=== PATIENT | male | born 1965 | race Caucasian/White ===

== ENCOUNTER 2021-12-02 07:50 | Inpatient (IN) ==
--- NOTE | 2021-09-07 16:30 | PAT Medication Instructions ---
Medication Instructions Date of Service September 07, 2021 Home Medications acetaminophen 500 mg tablet 1,500 mg PO Q6H PRN albuterol sulfate 2.5 mg INHALATION QID PRN albuterol sulfate 90 mcg/actuation aerosol inhaler 2 puff INHALATION Q6H PRN aspirin 325 mg capsule 325 mg PO QAM cholecalciferol (vitamin D3) 50 mcg (2,000 unit) capsule (Vitamin D3) 50 mcg PO QAM cinnamon bark 500 mg capsule (Cinnamon) 500 mg PO BID diltiazem HCl 120 mg capsule,extended release 12 hr 120 mg PO QAM diphenhydramine HCl 25 mg capsule (Benadryl) 25 mg PO HS PRN dulaglutide 0.75 mg/0.5 mL subcutaneous pen injector (Trulicity) 0.75 mg SUBCUT WK escitalopram oxalate 10 mg tablet 10 mg PO QAM glipizide 10 mg tablet 10 mg PO BID krill 1,000 mg-omega-3 170 mg-dha 50 mg-epa 80 [id number] capsule (krill oil) 1 cap PO QAM lisinopril 10 mg tablet 10 mg PO QAM metformin 1,000 mg tablet 1,000 mg PO BID multivitamin 1 tab PO QAM pravastatin 80 mg tablet 80 mg PO HS repaglinide 2 mg tablet 2 mg PO TID tizanidine 4 mg capsule 4 mg PO HS turmeric root extract 500 mg capsule 500 mg PO QAM vitamin E 100 unit capsule 100 unit PO QAM warfarin 10 mg tablet 10 mg PO HS Continue as directed dulaglutide 0.75 mg/0.5 mL subcutaneous pen injector (Trulicity) 0.75 mg SUBCUT WK (not day of surgery) ASK your prescriber and surgeon aspirin 325 mg capsule 325 mg PO QAM warfarin 10 mg tablet 10 mg PO HS STOP taking 2 weeks before surgery cinnamon bark 500 mg capsule (Cinnamon) 500 mg PO BID krill 1,000 mg-omega-3 170 mg-dha 50 mg-epa 80 [id number]-ywxtz capsule (krill oil) 1 cap PO QAM turmeric root extract 500 mg capsule 500 mg PO QAM vitamin E 100 unit capsule 100 unit PO QAM DO NOT take the morning of surgery cholecalciferol (vitamin D3) 50 mcg (2,000 unit) capsule (Vitamin D3) 50 mcg PO QAM glipizide 10 mg tablet 10 mg PO BID lisinopril 10 mg tablet 10 mg PO QAM metformin 1,000 mg tablet 1,000 mg PO BID multivitamin 1 tab PO QAM repaglinide 2 mg tablet 2 mg PO TID Take morning of surgery With a small sip of water, OTHERWISE NOTHING TO EAT OR DRINK AFTER MIDNIGHT: acetaminophen 500 mg tablet 1,500 mg PO Q6H PRN(okay to take up to 4 hours prior to surgery if needed). albuterol sulfate 2.5 mg INHALATION QID PRN(use if needed; please bring with you to hospital day of surgery if possible). albuterol sulfate 90 mcg/actuation aerosol inhaler 2 puff INHALATION Q6H PRN(use if needed; please bring with you to hospital day of surgery if possible). diltiazem HCl 120 mg capsule,extended release 12 hr 120 mg PO QAM escitalopram oxalate 10 mg tablet 10 mg PO QAM Take evening before surgery acetaminophen 500 mg tablet 1,500 mg PO Q6H PRN(if needed) albuterol sulfate 2.5 mg INHALATION QID PRN(if needed) albuterol sulfate 90 mcg/actuation aerosol inhaler 2 puff INHALATION Q6H PRN(if needed) diphenhydramine HCl 25 mg capsule (Benadryl) 25 mg PO HS PRN(if needed) glipizide 10 mg tablet 10 mg PO BID metformin 1,000 mg tablet 1,000 mg PO BID pravastatin 80 mg tablet 80 mg PO HS repaglinide 2 mg tablet 2 mg PO TID tizanidine 4 mg capsule 4 mg PO HS Other Notes If you have any questions please call us at [phone] or [phone] or [phone] or [phone]
--- NOTE | 2021-09-23 13:48 | Anesthesiology Consultation ---
Date of Service September 23, 2021 Assessment & Plan (1) Encounter for pre-operative examination: - PCP response to optimization note regarding: abnormal pre-op testing, abnormal CXR, chronic occasional dyspnea on exertion reported by patient, mild diffuse wheezing on examination, and elevated A1c. - PCP clearance 09/22/2021 [facility]: "...Dr. Steward...cervical spine surgery...Pt has revised cardiac index score of No Risk Factors-0.4%...for the surgery scheduled. Pt is low for the listed procedure. Based on my history and physical this patient is medically optimized for surgery and I believe he will do well..." - cardiology pre-op evaluation 09/20/2021 [facility]: "...pAtrial flutter newly found 06/15/2021 started cardizem; could not afford the eliquis so anticoagulated with warfarin...Recently in ED 08/24/21 with recurrent PAF. Recently seen in workman's compensation and EKG in their office documented recurrent PAF with a HR of 128 bpm asymptomatic per patient. Referred to ED but was in NSR when evaluated per ED EKG. Needs to have upcoming neck surgery with Dr Steward at [facility] scheduled for 10/04/21. No chest pain symptoms...Does not endorse any recent worsening shortness of breath or chest pain symptoms with exertion...Pt doing well from cardiovascular perspective at this time...Pt is at an acceptable moderate cardiovascular risk for his upcoming orthopedic surgery; ok to hold coumadin prior to the procedure without lovenox bridging and restart afterwards at the discretion of the orthopedic surgeon...Stop ASA..." - check BSG am DOS. - check coags am DOS. - COVID screening: Per assessment on 09/23/2021: Travel screen negative, no known COVID-19 positive contacts or current COVID-19 related symptoms in past 2 weeks. Patient vaccinated. Surgeon arranging preop COVID testing, scheduled 09/30/2021. Awaiting results. Chart Review Chart Review: Acceptable Risk for Surgery (PCP response to optimization note) and Patient seen in Pre Admission Testing Teaching & Discussion Pre-Anesthesia Teaching/Discussion Notes: Instructed NPO after midnight before surgery, except medications with 15 cc of water. Medication instructions provided according to the PAT guidelines. History Surgery Operation Date: 10/04/21 12:25 Proposed Procedures p C4-C7 Anterior Cervical Discectomy and Fusion, Spinal Cord Monitoring - Olivier Steward DO Height/Weight Height: 5 ft 9.5 in Weight: 145.4 kg Allergies Allergy/AdvReac Type Severity Reaction Status Date / Time No Known Allergies Allergy Verified 09/07/21 13:46 Medications Home Medications Medication Instructions Recorded Confirmed Last Taken acetaminophen 500 mg tablet 1,500 mg PO Q6H PRN 09/07/21 09/07/21 Unknown albuterol sulfate 2.5 mg INHALATION QID PRN 09/07/21 09/07/21 Unknown albuterol sulfate 90 mcg/actuation 2 puff INHALATION Q6H PRN 09/07/21 09/07/21 Unknown aerosol inhaler aspirin 325 mg capsule 325 mg PO QAM 09/07/21 09/07/21 Unknown cholecalciferol (vitamin D3) 50 50 mcg PO QAM 09/07/21 09/07/21 Unknown mcg (2,000 unit) capsule (Vitamin D3) cinnamon bark 500 mg capsule 500 mg PO BID 09/07/21 09/07/21 Unknown (Cinnamon) diltiazem HCl 120 mg 120 mg PO QAM 09/07/21 09/07/21 Unknown capsule,extended release 12 hr diphenhydramine HCl 25 mg capsule 25 mg PO HS PRN 09/07/21 09/07/21 Unknown (Benadryl) dulaglutide 0.75 mg/0.5 mL 0.75 mg SUBCUT WK 09/07/21 09/07/21 Unknown subcutaneous pen injector (Trulicity) escitalopram oxalate 10 mg tablet 10 mg PO QAM 09/07/21 09/07/21 Unknown glipizide 10 mg tablet 10 mg PO BID 09/07/21 09/07/21 Unknown krill 1,000 mg-omega-3 170 mg-dha 1 cap PO QAM 09/07/21 09/07/21 Unknown 50 mg-epa 80 mh-iqthbk-vploo capsule (krill oil) lisinopril 10 mg tablet 10 mg PO QAM 09/07/21 09/07/21 Unknown metformin 1,000 mg tablet 1,000 mg PO BID 09/07/21 09/07/21 Unknown multivitamin 1 tab PO QAM 09/07/21 09/07/21 Unknown pravastatin 80 mg tablet 80 mg PO HS 09/07/21 09/07/21 Unknown repaglinide 2 mg tablet 2 mg PO TID 09/07/21 09/07/21 Unknown tizanidine 4 mg capsule 4 mg PO HS 09/07/21 09/07/21 Unknown turmeric root extract 500 mg 500 mg PO QAM 09/07/21 09/07/21 Unknown capsule vitamin E 100 unit capsule 100 unit PO QAM 09/07/21 09/07/21 Unknown warfarin 10 mg tablet 10 mg PO HS 09/07/21 09/07/21 Unknown Past Medical History Medical History (Updated 09/23/21 @ 15:08 by Nadiya Mcgrath PA-C) 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 Exercise / Class Metabolic Activity II 4-5 Yardwork/Stairs/Walk up hill (occasional shortness of breath with activity-chronic without change or worsening per pt; denies CP) Past Family History Family History Other No known health problems Past Surgical History Surgical History No history of previous surgery Past Anesthesia History No Family Hx of Anesthesia Complications History of PONV No Hx of Motion Sickness STOP BANG Total 8 Social History Smoking Status: Never smoker Do You Dip or Chew Tobacco: No Hx Alcohol Use: Yes alcohol intake frequency: holidays/special occasions only Hx Substance Use: No Review of Systems Patient denies chest pain, shortness of breath, reflux, fever, chills, coughor palpitations. Physical Exam Vital Signs Vitals BP 143/78 P 98 TEMP 99.3 SP02 96% on RA RESP 17 Physical Full cervical extension range of motion without pain Full TMJ range of motion TMD 3.5 finger breaths Mallampati Score 3 Dentition: intact, front chipped teeth, few remaining teeth; denies loose teeth, caps/crowns, implants or bridges Lungs: normal respiratory effort. Mild diffuse wheezing upon auscultation, no rhonchi or rales. Patient speaking clearly in full sentences without limitation. 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 Cardiac: regular rate and rhythm, no murmurs noted Carotid arteries: negative bruit bilat Extremities: no distal extremity edema Lab Results Anesthesia Preop Results Results Anesthesia Widget: WBC 11.61 K/uL (4.8-10.8) H 09/23/21 Hgb 13.8 g/dL (14.0-18.0) L 09/23/21 Hct 42.1 % (42-52) 09/23/21 Plt 309 K/uL (130-400) 09/23/21 Na 138 mmol/L (136-145) 09/23/21 K 4.3 mmol/L (3.5-5.1) 09/23/21 Cl 101 mmol/L (98-107) 09/23/21 CO2 27 mmol/L (21-32) 09/23/21 BUN 22 mg/dl (6-23) 09/23/21 Creat 0.90 mg/dl (0.6-1.4) 09/23/21 Glucose Level 181 mg/dl (70-99) H 09/23/21 PT 20.1 Seconds (9.0-12.0) H 09/23/21 PTT 39.6 Seconds (21.0-31.0) H 09/23/21 INR 2.1 (0.9-1.1) H 09/23/21 HA1c 8.9 % (4.5-5.6) H 09/23/21 Urine Color Yellow 09/23/21 Urine Appearance Clear (Clear) 09/23/21 Urine pH 5.0 (4.5-7.5) 09/23/21 Urine Specific [place] 1.022 (1.000-1.030) 09/23/21 Urine Protein Negative (Negative) 09/23/21 Urine Glucose (UA) Negative (Negative) 09/23/21 Urine Ketones Trace (Negative) H 09/23/21 Urine Blood Negative (Negative) 09/23/21 Urine Nitrite Negative (Negative) 09/23/21 Urine Bilirubin Negative (Negative) 09/23/21 Urine Urobilinogen Negative (Negative) 09/23/21 Urine Leukocyte Esterase Negative (Negative) 09/23/21 Blood Type O Positive 09/23/21 Antibody Screen NEGATIVE 09/23/21 Lab Comments: Surgeon's office made aware of elevated A1c. Testing Electrocardiogram Date: 08/24/21 Normal sinus rhythm, rate 83 bpm. Chest X-Ray Date: 09/23/21 FINDINGS: Frontal and lateral radiographs of the chest demonstrate the cardiomediastinal silhouette to be within normal limits. The lungs are hyperinflated with fla ttening of the hemidiaphragms and increase in the retrosternal space characteristic of underlying chronic obstructive pulmonary disease. No smoking history was provided. The lungs are clear of alveolar opacities. Prominence of interstitial markings is present bilaterally which appears chronic in nature. There is no evidence for effusion bilaterally. There is no evidence for vascular congestion. There is no acute osseous pathology. IMPRESSION: No acute cardiopulmonary disease. Evidence for COPD and mild interstitial fibrotic changes. Echocardiogram Date: 07/07/21 EF 66% Mild cLVH Proximal ascending thoracic aorta mildly enlarged (4.0 cm) Normal wall motion of left ventricle No significant valvular dysfunction
[~2021-12-02 07:50] MED LIST: ACETAMINOPHEN 500 MG TAB PO SCH; CeleBREX 200 MG CAP PO SCH; GABAPENTIN 300 MG CAP PO SCH; LR 15ML/HR IV SCH
[2021-12-02 08:43] LABS: Basophils # (auto) 0.02 K/uL (0-0.2); Basophils % (auto) 0.2 %; Eosinophils # (auto) 0.24 K/uL (0-0.5); Eosinophils % (auto) 2.3 %; Hematocrit (blood only) 42.7 % (42-52); Hemoglobin 14.3 g/dL (14.0-18.0); Immature Granulocytes # (auto) 0.02 K/uL (0.00-0.02); Immature Granulocytes % (auto) 0.2 %; Lymphocytes # (auto) 2.03 K/uL (1.2-3.4); Lymphocytes % (auto) 19.7 %; Mean Corpuscular Hemoglobin 29.8 pg (25-34); Mean Platelet Volume 9.5 fL (7.4-10.4); Monocytes # (auto) 1.03 K/uL (0.11-0.59); Neutrophils # (auto) 6.97 K/uL (1.4-6.5); Neutrophils % (auto) 67.6 %; Platelet Count 282 K/uL (130-400); RDW Standard Deviation 45.5 fL (36.4-46.3); White Blood Count 10.31 K/uL (4.8-10.8)
[2021-12-02] MEDS ORDERED: fentaNYL citrate 100 MCG/2 ML VIAL ONE (08:46)
[2021-12-02] MEDS ORDERED: GLYCOPYRROLATE 0.2 MG/ML VIAL ONE (08:46)
[2021-12-02] MEDS ORDERED: PROPOFOL IV EMULSION 10 MG/ML 20 ML VIAL IV ONE (08:46)
[2021-12-02] MEDS ORDERED: DEXAMETHASONE SOD INJ 4 MG/ML VIAL ONE ×2 (08:46→09:41)
[2021-12-02] MEDS ORDERED: NEOSTIGMINE METHYLSULFATE 1 MG/ML 10ML VIAL ONE (08:46)
[2021-12-02] MEDS ORDERED: ONDANSETRON INJ 2 MG/ML 2 ML VIAL ONE (08:46)
[2021-12-02] MEDS ORDERED: LIDOCAINE 2% 2 ML VIAL/AMP(20MG/ML) INFIL ONE (08:46)
[2021-12-02] MEDS ORDERED: MIDAZOLAM HCL 1 MG/ML 2ML VIAL ONE (08:46)
[2021-12-02 08:54] LABS: INR 1.1 (0.9-1.1); Partial Thromboplastin Ratio 1.1; Partial Thromboplastin Time 29.3 Seconds (21.0-31.0); Prothrombin Time 11.6 Seconds (9.0-12.0)
--- NOTE | 2021-12-02 09:02 | History & Physical Bridge Note ---
Date of Service December 02, 2021 History & Physical Bridge Note I have examined the patient, reviewed the History & Physical and in the interval since the performance of the History & Physical I have noted the following changes of clinical significance: no changes noted
--- NOTE | 2021-12-02 09:03 | History & Physical Report ---
Date of Service December 02, 2021 Assessment & Plan (1) Herniation of cervical intervertebral disc with radiculopathy: Plan: C4-C7 anterior cervical discectomy and fusion History of Present Illness Chief Complaint: Neck and bilateral arm pain Primary Care Provider: NO PCP This is a 56-year-old male that presents with a work-related injury causing significant cervical radiculopathy. He is failed extensive course of nonoperative care and here for surgical intervention. Allergies Allergy/AdvReac Type Severity Reaction Status Date / Time No Known Allergies Allergy Verified 12/02/21 08:28 Home Medications Medication Instructions Recorded Confirmed Type acetaminophen 500 mg tablet 1,500 mg PO Q6H PRN 09/07/21 12/02/21 History albuterol sulfate 2.5 mg INHALATION QID PRN 09/07/21 12/02/21 History albuterol sulfate 90 mcg/actuation 2 puff INHALATION Q6H PRN 09/07/21 12/02/21 History aerosol inhaler cholecalciferol (vitamin D3) 50 50 mcg PO QAM 09/07/21 12/02/21 History mcg (2,000 unit) capsule (Vitamin D3) cinnamon bark 500 mg capsule 500 mg PO BID 09/07/21 12/02/21 History (Cinnamon) diltiazem HCl 120 mg 120 mg PO QAM 09/07/21 12/02/21 History capsule,extended release 12 hr diphenhydramine HCl 25 mg capsule 25 mg PO HS PRN 09/07/21 12/02/21 History (Benadryl) dulaglutide 0.75 mg/0.5 mL 0.75 mg SUBCUT WK 09/07/21 12/02/21 History subcutaneous pen injector (Trulicity) escitalopram oxalate 10 mg tablet 10 mg PO QAM 09/07/21 12/02/21 History glipizide 10 mg tablet 10 mg PO BID 09/07/21 12/02/21 History krill 1,000 mg-omega-3 170 mg-dha 1 cap PO QAM 09/07/21 12/02/21 History 50 mg-epa 80 mc-sbstqc-csmre capsule (krill oil) lisinopril 10 mg tablet 10 mg PO QAM 09/07/21 12/02/21 History metformin 1,000 mg tablet 1,000 mg PO BID 09/07/21 12/02/21 History multivitamin 1 tab PO QAM 09/07/21 12/02/21 History pravastatin 80 mg tablet 80 mg PO HS 09/07/21 12/02/21 History repaglinide 2 mg tablet 2 mg PO TID 09/07/21 12/02/21 History tizanidine 4 mg capsule 4 mg PO HS 09/07/21 12/02/21 History turmeric root extract 500 mg 500 mg PO QAM 09/07/21 12/02/21 History capsule vitamin E 100 unit capsule 100 unit PO QAM 09/07/21 12/02/21 History warfarin 10 mg tablet 10 mg PO HS 09/07/21 12/02/21 History oxycodone-acetaminophen 5 mg-325 0.5 tab PO HS 11/26/21 12/02/21 History mg tablet (Percocet) Past Med/Surg History Medical History (Updated 12/02/21 @ 09:03 by Olivier Steward DO) 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 DUE TO THE DUST Atrial fibrillation F/U DR YU-ON WARFARIN Diabetes mellitus, type 2 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 Hyperlipidemia Hypertension Morbid obesity with BMI of 45.0-49.9, adult Sleep apnea CPAP-nightly compliance Surgical History (Updated 11/26/21 @ 11:19 by Imelda Yu RN) History of tonsillectomy Family History (Updated 11/26/21 @ 11:27 by Imelda Yu RN) Other No family history of adverse response to anesthesia No known health problems Social History (Updated 09/07/21 @ 14:14 by Cortney Garza RN) Smoking Status: Never smoker Second Hand Exposure: Yes (IN THE PAST); Do You Dip or Chew Tobacco: No; Hx Alcohol Use: Yes Hx Substance Use: No Preferred Language: Kazakh Communication Ability: Effective Environmental Services Aide Required: No Beliefs That Will Affect Care: None Current Living Situation: Spouse current occupational status: employed current occupation: WORKS ON A [employer] Other Information That Helps Us Care for You: No Feels Safe at Home: Yes Safety Concerns: Feels Safe At This Time Assistive Devices: CPAP Physical Exam Physical Exam: Patient is alert and oriented Heart regular rhythm Lungs clear Results & Data ([facility]) Vital Signs (Past 12 Hours) Vital Signs Temp Pulse Resp BP Pulse Ox 12/02/21 08:39 36.7 C 79 20 136/86 97
[2021-12-02 09:07] LABS: Mean Corpuscular Hgb Conc 33.5 g/dL (32-36)
[2021-12-02] MEDS ORDERED: ONDANSETRON INJ 2 MG/ML 2 ML VIAL IV PRN ×2 (09:08→15:22)
[2021-12-02] MEDS ORDERED: ATROPINE SULFATE 0.1 MG/ML 10ML SYR IV PRN (09:08)
[2021-12-02] MEDS ORDERED: ePHEDrine sulfate 50 MG/ML AMP IV PRN (09:08)
[2021-12-02] MEDS ORDERED: ceFAZolin 330 MG/ML 1 GM VIAL ONE (09:15)
[2021-12-02 09:22] LABS: BUN Creatinine Ratio 21.7 (10-20); Calcium 9.3 mg/dl (8.5-10.1); Creatinine Clr Calc Pharmacy 168.8 ml/min; Est GFR (African American) 123.9 ml/min; Est GFR (Non-African American) 106.9 ml/min; Potassium 4.1 mmol/L (3.5-5.1)
[2021-12-02] MEDS ORDERED: HYDROmorphone INJ 2 MG/ML SYR/VIAL ONE (09:49)
[2021-12-02] MEDS ORDERED: FLOSEAL HEMOSTATIC MATRIX 10ML TOP ONE (10:08)
[2021-12-02] MEDS ORDERED: ROCURONIUM BROMIDE 10 MG/ML 5 ML VIAL IV ONE (10:55)
--- NOTE | 2021-12-02 11:36 | Operative Report ---
Post Operative Report Pre & Post Diagnosis Operation Date: 11/16/21 10:05 <No data on this case meets the specified criteria> Operation Date: 12/02/21 09:35 Pre-Op Diagnosis: Spinal Stenosis, Cervical Region, C4-C7 Post-Op Diagnosis: Spinal Stenosis, Cervical Region, C4-C7 I identified the patient and participated in the time-out.: Yes Procedure Operation Date: 11/16/21 10:05 <No data on this case meets the specified criteria> Operation Date: 12/02/21 09:35 Actual Procedures 1 anterior cervical discectomy with bilateral foraminotomies C4-C5, C5-C6 and C6-C7. #2 anterior cervical arthrodesis C4-C5, C5-C6 and C6-C7. #3 placement of Spira cage filled with I factor VIII millimeters at C for C5, 7 mm at C5-C6 and 9 mm at C6-C7. #4 application of gutiérrez plate and screws from C4-C7. Surgeon Olivier Steward, DO Cloth Weaver Anne Miguel Estimated Blood Loss 25 Findings See Below The patient is 5 foot 9 weighing over 138 kg with a BMI in excess of 44. The patient's body habitus did create significant technical difficulty throughout the procedure adding at least 50% increase to the operative time. Specimens None Indications This is a 56-year-old male who presents with chronic persistent cervical radiculopathy injury at work. After failing course of nonoperative care is here for the above-mentioned procedure. Description of Procedure Patient was met with identified informed consent obtained. Patient was then taken to the operative suite underwent a patient placed in the supine position Charles table with his head Hong head of ethics and compliance. All bony prominences well- padded eyes inspected to ensure no external pressure placed upon the. This point the anterior cervical spine was prepped and draped in a sterile fashion. Longitudinal incision was placed on the right anterior aspect of the cervical spine extending from C4-C7. Blunt dissection was then carried out down to and exposing the anterior cervical spine from C4 to see 7. He did require deepest retractors and extended instrumentation in order to access his spine secondary to his body habitus. Being at C4-C5 a complete discectomy was performed out to the uncovertebral joints bilaterally. Westerly distractor pins placed for assist in visualization and distraction. Removed all posterior annular fibers longitudinal ligament bilateral foraminotomies performed. An 8 mm Spira cage filled with I factor was then tapped in position. Then proceeded to C5-C6. Cannot complete discectomy performed out to the uncovertebral's bilaterally. Westerly distracting pins again utilized. Removed all posterior fibers longitudinal ligament bilateral foraminotomies performed. A 7 mm Spira cage filled I factor was then tapped in position. Then proceeded to C6-C7. A complete discectomy performed out to the uncovertebral's bilaterally. Westerly distractor pins again utilized. Removed all posterior annular fibers longitudinal ligament and performed bilateral foraminotomies. Endplates were then burred to subcortically bone and 9 mm spiral cage with I factor tapped in position. Distracting apparatus was removed and 5 complete and screws applied with the assistance of fluoroscopy. Incision was then copiously irrigated explored to ensure no damage to surrounding structures remaining bleeding. 15 round JUSTUS drain inserted. The incision was then closed with 2 Vicryl in a fashion of 4 Monocryl for final skin closure. Steri-Strip sterile dressings placed. Patient will continue PACU stable condition. Please note spinal cord monitoring was utilized at the procedure no changes noted. Lastly Anne Miguel was present at the entire surgery and while the patient positioning complex portions of the surgery and final skin closure. I attest to the content of the Intraoperative Record and any orders documented therein. Any exceptions are noted below.
--- NOTE | 2021-12-02 12:08 | Fluoroscopy Report ---
FL cervical 2-3V CLINICAL HISTORY: C4-7 ACDF COMPARISON STUDY: None. FLUOROSCOPY TIME: 16 seconds. FLUOROSCOPIC IMAGES: 4 FINDINGS: Fluoroscopy was provided during C4-C7 anterior discectomy and fusion. Hardware is intact. S urgical drain is in place. Endotracheal tube is partially imaged. IMPRESSION: Fluoroscopy provided during C4-C7 anterior discectomy and fusion. ACT 112: Negative or not required by law. Electronically signed by: Kenneth Ureña M.D. 12/02/2021 12:06 PM
[2021-12-02] MEDS: fentaNYL citrate 100 MCG/2 ML VIAL IV PRN ×2 (12:10→12:15)
--- NOTE | 2021-12-02 13:36 | Anesthesiology Progress Note ---
Date of Service December 02, 2021 Anesthesia Post Procedure Vital Signs Vital Signs: Temp Pulse Pulse Resp BP Pulse Ox 12/02/21 13:15 74 14 156/78 H 93 12/02/21 13:05 77 14 154/83 H 93 12/02/21 12:55 75 13 143/84 H 93 12/02/21 12:45 77 13 150/81 H 93 12/02/21 12:35 75 13 147/78 H 92 12/02/21 12:25 36.4 C L 77 13 150/80 H 92 12/02/21 12:15 78 13 162/79 H 92 12/02/21 12:05 78 14 161/96 H 93 12/02/21 11:55 87 16 171/91 H 93 12/02/21 11:48 36.4 C L 72 10 L 170/81 H 93 12/02/21 08:39 36.7 C 79 20 136/86 97 Pain Intensity Neck: Pain Intensity: 5 Transfer of Care Handoff Completed per policy Notes Mental Status: alert / awake / arousable and participated in evaluation Patient Amnestic to Procedure: Yes Nausea / Vomiting: adequately controlled Pain: adequately controlled Airway Patency, RR, SpO2: stable & adequate BP & HR: stable & adequate Hydration State: stable & adequate Anesthetic Complications: no major complications apparent
[2021-12-02] MEDS ORDERED: HYDROmorphone INJ 0.5 MG/0.5 ML SYR IV PRN (15:22)
[2021-12-02] MEDS ORDERED: REPAGLINIDE 1 MG TAB PO SCH (15:22)
[2021-12-02] MEDS ORDERED: PHARMACY GLYCEMIC MGMT CONSULT PRN (15:22)
[2021-12-02] MEDS ORDERED: ALUMINUM/MAGNESIUM SUSP 30 ML UDC PO PRN (15:22)
[2021-12-02] MEDS ORDERED: DO NOT ADMINISTER FLU VACCINE PRN (15:22)
[2021-12-02] MEDS ORDERED: FAMOTIDINE 20 MG TAB PO PRN (15:22)
[2021-12-02] MEDS ORDERED: LORazepam 0.5 MG TAB PO PRN (15:22)
[2021-12-02] MEDS ORDERED: diphenhydrAMINE Capsule 25 MG CAP PO PRN ×2 (15:22)
[2021-12-02] MEDS ORDERED: dexAMETHasone 8 MG in SYRINGE 0 ML IV PRN (15:22)
[2021-12-02] MEDS ORDERED: ACETAMINOPHEN 1,000 MG/100 ML VIAL IV PRN (15:22)
[2021-12-02] MEDS ORDERED: SOD PHOSPHATE/SOD BIPHOSPHATE ENEMA 132 ML BTL PR PRN (15:22)
[2021-12-02] MEDS ORDERED: MAGNESIUM HYDROXIDE SUSP 30 ML UDC PO PRN (15:22)
[2021-12-02] MEDS ORDERED: LORazepam 2 MG/1 ML VIAL IV PRN (15:22)
[2021-12-02] MEDS ORDERED: traMADol HCL 50 MG TABLET PO PRN (15:22)
[2021-12-02] MEDS ORDERED: PROMETHAZINE HCL 12.5 MG in SODIUM CHLORIDE 0.9% 50 ML IV PRN (15:22)
[2021-12-02] MEDS ORDERED: oxyCODONE HCL IR 5 MG TAB (IMMEDIATE RELEASE) PO PRN (15:22)
[2021-12-02] MEDS ORDERED: HYDROmorphone INJ 1 MG/ML SYRINGE IV PRN (15:22)
[2021-12-02] MEDS ORDERED: hydrOXYzine HCl 25 MG TAB PO PRN (15:22)
[2021-12-02] MEDS ORDERED: RACEPINEPHRINE 2.25% NEBU SOLN 0.5 ML VIAL INH PRN (15:22)
[2021-12-02] MEDS ORDERED: METOCLOPRAMIDE HCL INJ 5 MG/ML 2 ML VIAL IV PRN (15:22)
[2021-12-02] MEDS ORDERED: ONDANSETRON 4 MG OD TAB PO PRN (15:22)
[2021-12-02] MEDS ORDERED: ALBUTEROL HFA 8 GM INHALER INH PRN (15:22)
[2021-12-02] MEDS ORDERED: DO NOT ADMINISTER PNEUMOCOCCAL VACCINE PRN (15:22)
[2021-12-02] MEDS ORDERED: bisacodyL 10 MG SUPP PR PRN (15:22)
[2021-12-02] MEDS ORDERED: ACETAMINOPHEN 500 MG TAB PO PRN (15:22)
[2021-12-02] MEDS ORDERED: NALOXONE HCL 0.4 MG/1 ML VIAL/CARP IV PRN (15:22)
[2021-12-02] MEDS ORDERED: ALBUTEROL 0.083% NEBU SOLN 3 ML VIAL INH PRN (15:22)
[2021-12-02] MEDS: SODIUM CHLORIDE 0.9% 1000ML 1,000 ML IV SCH ×2 (15:40→21:33)
--- NOTE | 2021-12-02 15:43 | Hospitalist Consultation ---
Date of Consultation December 02, 2021 Assessment & Plan (1) Herniation of cervical intervertebral disc with radiculopathy: (2) PAF (paroxysmal atrial fibrillation): (3) Hypertension: (4) Diabetes mellitus, type 2: (5) Sleep apnea: Supervising Physician Co-Signing Physician Notes Attending addendum: The patient was seen and examined in medical floor He is a status post C4-C7 anterior cervical discectomy fusion for herniated cervical intervertebral disc Has minimal pain in the neck but otherwise asymptomatic Denies any other significant symptoms On examination Is obese, lying in bed comfortably Chest-decreased breath sounds both sides but no wheezing or crackles HeartS1-S2, irregular Abdomendistended, soft and bowel sound present Extremitiestrace edema bilaterally CNSalert, awake and oriented x3 His labs, cardiology evaluation and imaging studies reviewed Status post C4-C7 anterior cervical discectomy fusion and spinal cord monitoring with history of paroxysmal atrial fibrillation on Coumadin, hypertension and diabetes Remains medically stable Agree with assessment and plan as outlined above by DILSHAD Askew DR History of Present Illness Reason for Consultation: Post-operative Medical Management Requesting Physician: Dr. Olivier Steward Attending Physician: Olivier Steward, DO History of Present Illness This is a 56 y/o male with a PMH of HTN, DM2, PAF on chronic AC, obesity, ASHER on CPAP, and hypercholesterolemia who underwent cervical discectomy with bilateral foraminectomy today by Dr. Steward and for which we have been consulted for post- operative medical management. Saw cardiology in Sep for pre-operative evaluation and was at an acceptable moderate cardiovascular risk for this surgery. Per cardiology notes, okay to hold warfarin without Lovenox bridge but it should be resumed post-operatively once okay with Dr. Steward. PCP also saw the patient in September and notes state that he was medically optimized for surgery. Most recent A1c on 09/22/21 was 8.6. Follows with [facility] for warfarin dosing. Pt reports that he is currently taking 10 mg /Mon, 15 mg all other days. Currently, pt is seen sitting up in bed. Reports some discomfort in his neck but no significant pain. He denies weakness, numbness or tingling in his UE. No chest pain, palpitations, SOB or dizziness. Denies nausea or vomiting. Tolerating small sips of water but has not had anything to eat yet. He does use CPAP nightly for ASHER with a setting of 8 - brought his own machine to use while here. Allergies Allergy/AdvReac Type Severity Reaction Status Date / Time No Known Allergies Allergy Verified 12/02/21 08:28 Home Medications Medication Instructions Recorded Confirmed Type acetaminophen 500 mg tablet 1,500 mg PO Q6H PRN 09/07/21 12/02/21 History albuterol sulfate 2.5 mg INHALATION QID PRN 09/07/21 12/02/21 History albuterol sulfate 90 mcg/actuation 2 puff INHALATION Q6H PRN 09/07/21 12/02/21 History aerosol inhaler cholecalciferol (vitamin D3) 50 50 mcg PO QAM 09/07/21 12/02/21 History mcg (2,000 unit) capsule (Vitamin D3) cinnamon bark 500 mg capsule 500 mg PO BID 09/07/21 12/02/21 History (Cinnamon) diltiazem HCl 120 mg 120 mg PO QAM 09/07/21 12/02/21 History capsule,extended release 12 hr diphenhydramine HCl 25 mg capsule 25 mg PO HS PRN 09/07/21 12/02/21 History (Benadryl) dulaglutide 0.75 mg/0.5 mL 0.75 mg SUBCUT WK 09/07/21 12/02/21 History subcutaneous pen injector (Trulicity) escitalopram oxalate 10 mg tablet 10 mg PO QAM 09/07/21 12/02/21 History glipizide 10 mg tablet 10 mg PO BID 09/07/21 12/02/21 History krill 1,000 mg-omega-3 170 mg-dha 1 cap PO QAM 09/07/21 12/02/21 History 50 mg-epa 80 xg-rzkcyp-heddw capsule (krill oil) lisinopril 10 mg tablet 10 mg PO QAM 09/07/21 12/02/21 History metformin 1,000 mg tablet 1,000 mg PO BID 09/07/21 12/02/21 History multivitamin 1 tab PO QAM 09/07/21 12/02/21 History pravastatin 80 mg tablet 80 mg PO HS 09/07/21 12/02/21 History repaglinide 2 mg tablet 2 mg PO TID 09/07/21 12/02/21 History tizanidine 4 mg capsule 4 mg PO HS 09/07/21 12/02/21 History turmeric root extract 500 mg 500 mg PO QAM 09/07/21 12/02/21 History capsule vitamin E 100 unit capsule 100 unit PO QAM 09/07/21 12/02/21 History warfarin 10 mg tablet 10 mg PO HS 09/07/21 12/02/21 History oxycodone-acetaminophen 5 mg-325 0.5 tab PO HS 11/26/21 12/02/21 History mg tablet (Percocet) Patient History Medical History (Updated 12/02/21 @ 15:41 by Rozina Singletary PA-C) 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 DUE TO THE DUST Diabetes mellitus, type 2 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 Hyperlipidemia Hypertension Morbid obesity with BMI of 45.0-49.9, adult PAF (paroxysmal atrial fibrillation) F/U DR YU-ON WARFARIN Sleep apnea CPAP-nightly compliance Surgical History (Updated 11/26/21 @ 11:19 by Imelda Yu RN) History of tonsillectomy Family History (Updated 12/02/21 @ 15:41 by Rozina Singletary PA-C) Mother Crohn's disease Other No family history of adverse response to anesthesia Social History (Updated 09/07/21 @ 14:14 by Cortney Garza RN) Smoking Status: Never smoker Second Hand Exposure: Yes (IN THE PAST); Do You Dip or Chew Tobacco: No; Hx Alcohol Use: Yes Hx Substance Use: No Preferred Language: Ethiopian Communication Ability: Effective Size Tester Required: No Beliefs That Will Affect Care: None Current Living Situation: Spouse current occupational status: employed current occupation: WORKS ON [employer] Other Information That Helps Us Care for You: No Feels Safe at Home: Yes Safety Concerns: Feels Safe At This Time Assistive Devices: CPAP Review of Systems Review of Systems: All systems reviewed & are unremarkable except as noted in HPI & below Constitutional: no fever, no chills and no sweats Eyes: no diplopia Ear, Nose, Mouth, Throat: no nasal congestion, no nasal discharge and no sore throat Respiratory: no cough, no dyspnea and no wheezing Cardiovascular: no chest pain, no palpitations, no lightheadedness and no edema Gastrointestinal: no abdominal pain, no nausea and no vomiting Genitourinary: no dysuria or no hematuria Musculoskeletal: + neck pain Integumentary: no rash and no yellowing of the skin Neurologic: no dizziness and no headache(s) Psychiatric: no depression and no anxiety Physical Exam Constitutional: well developed and well nourished; no acute distress Eyes: + anicteric sclerae ENMT: external ear and nose normal, oropharynx normal Neck: dressing on anterior neck C/D/I - drain in place with sanguinous drainage Respiratory: no respiratory distress and no labored breathing Auscultation: lungs clear to auscultation bilaterally; no rales and no wheezes Cardiovascular: Rate/Rhythm: regular rate and regular rhythm Heart Sounds: no gallop, no murmur and no cardiac rub Vessels: radial pulses present Extremities: no edema Gastrointestinal (Abdomen): Inspection/Auscultation: normal bowel sounds; abdomen not distended Percussion/Palpation: abdomen soft; abdomen nontender Musculoskeletal: 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 and equal bilaterally Skin: no jaundice Neurologic: moves all extremities; no focal motor deficits Psychiatric: A+Ox3, euthymic affect Results & Data Results & Data ([facility]) Vital Signs (Past 12 Hours) Vital Signs Temp Pulse Pulse Resp BP Pulse Ox 12/02/21 14:50 81 12 126/76 94 12/02/21 14:35 77 12 152/75 H 94 12/02/21 14:05 36.4 C L 73 14 151/75 H 94 12/02/21 13:50 75 15 147/77 H 94 12/02/21 13:35 82 16 141/82 H 94 12/02/21 13:25 76 16 139/84 94 12/02/21 13:15 74 14 156/78 H 93 12/02/21 13:05 77 14 154/83 H 93 12/02/21 12:55 75 13 143/84 H 93 12/02/21 12:45 77 13 150/81 H 93 12/02/21 12:35 75 13 147/78 H 92 12/02/21 12:25 36.4 C L 77 13 150/80 H 92 12/02/21 12:15 78 13 162/79 H 92 12/02/21 12:05 78 14 161/96 H 93 12/02/21 11:55 87 16 171/91 H 93 12/02/21 11:48 36.4 C L 72 10 L 170/81 H 93 12/02/21 08:39 36.7 C 79 20 136/86 97 Laboratory Results 12/02/21 12/02/21 12/02/21 08:25 08:26 08:33 WBC RBC Hgb Hct MCV MCH MCHC RDW Std Deviation RDW Coeff of Ramos Plt Count MPV Immature Gran % (Auto) Neut % (Auto) Lymph % (Auto) Angelina % (Auto) Eos % (Auto) Baso % (Auto) Neut # (Auto) Lymph # (Auto) Angelina # (Auto) Eos # (Auto) Baso # (Auto) Immature Gran # (Auto) PT INR APTT PTT Ratio Sodium Potassium Chloride Carbon Dioxide Anion Gap BUN Creatinine Est Cr Clr Drug Dosing Est GFR ( Amer) Est GFR (Non-Af Amer) BUN/Creatinine Ratio Glucose POC Glucose 172 H Calcium SARS-CoV-2, RNA, NAAT NEGATIVE Blood Type O Positive Antibody Screen NEGATIVE 12/02/21 12/02/21 12/02/21 08:33 08:33 08:33 WBC 10.31 RBC 4.80 Hgb 14.3 Hct 42.7 MCV 89.0 MCH 29.8 MCHC 33.5 RDW Std Deviation 45.5 RDW Coeff of Ramos 14.0 Plt Count 282 MPV 9.5 Immature Gran % (Auto) 0.2 Neut % (Auto) 67.6 Lymph % (Auto) 19.7 Angelina % (Auto) 10.0 Eos % (Auto) 2.3 Baso % (Auto) 0.2 Neut # (Auto) 6.97 H Lymph # (Auto) 2.03 Angelina # (Auto) 1.03 H Eos # (Auto) 0.24 Baso # (Auto) 0.02 Immature Gran # (Auto) 0.02 PT 11.6 INR 1.1 APTT 29.3 PTT Ratio 1.1 Sodium 135 L Potassium 4.1 Chloride 102 Carbon Dioxide 26 Anion Gap 7 BUN 15 Creatinine 0.69 Est Cr Clr Drug Dosing 168.8 Est GFR ( Amer) 123.9 Est GFR (Non-Af Amer) 106.9 BUN/Creatinine Ratio 21.7 H Glucose 131 H POC Glucose Calcium 9.3 SARS-CoV-2, RNA, NAAT Blood Type Antibody Screen 12/02/21 11:50 WBC RBC Hgb Hct MCV MCH MCHC RDW Std Deviation RDW Coeff of Ramos Plt Count MPV Immature Gran % (Auto) Neut % (Auto) Lymph % (Auto) Angelina % (Auto) Eos % (Auto) Baso % (Auto) Neut # (Auto) Lymph # (Auto) Angelina # (Auto) Eos # (Auto) Baso # (Auto) Immature Gran # (Auto) PT INR APTT PTT Ratio Sodium Potassium Chloride Carbon Dioxide Anion Gap BUN Creatinine Est Cr Clr Drug Dosing Est GFR ( Amer) Est GFR (Non-Af Amer) BUN/Creatinine Ratio Glucose POC Glucose 194 H Calcium SARS-CoV-2, RNA, NAAT Blood Type Antibody Screen Medications Administered Acetaminophen (Acetaminophen 500 Mg Tab) 1,000 mg PO PREOP MICHELLE Stop: 12/02/21 18:00 Last Admin: 12/02/21 09:14 Dose: 1,000 mg Documented by: [id number] Celecoxib (Celebrex 200 Mg Cap) 200 mg PO PREOP MICHELLE Stop: 12/02/21 18:00 Last Admin: 12/02/21 09:14 Dose: 200 mg Documented by: [id number] Fentanyl Citrate (Fentanyl Citrate 100 Mcg/2 Ml Vial) 50 mcg IV Q5M PRN PRN Reason: PACU Use Only-Pain Stop: 12/02/21 17:08 Last Admin: 12/02/21 12:15 Dose: 50 mcg Documented by: [id number] Admin: 12/02/21 12:10 Dose: 50 mcg Documented by: [id number] Gabapentin (Gabapentin 300 Mg Cap) 300 mg PO PREOP MICHELLE Stop: 12/02/21 18:00 Last Admin: 12/02/21 09:14 Dose: 300 mg Documented by: [id number] Lactated Ringer's (Lr) 1,000 mls @ 15 mls/hr IV .Q24H MICHELLE Stop: 12/03/21 05:59 Last Infusion: 12/02/21 09:28 Dose: 0 mls/hr Documented by: [id number] Admin: 12/02/21 08:59 Dose: 15 mls/hr Documented by: [id number] Cefazolin Sodium (Ancef 3000mg) 72.5 mls @ 130 mls/hr IV PREOP MICHELLE; Protocol Stop: 12/02/21 18:00 Last Admin: 12/02/21 09:28 Dose: 130 mls/hr Documented by: [id number] Discontinued Medications Cefazolin Sodium (Cefazolin 330 Mg/Ml 1 Gm Vial) Confirm Administered Dose 990 mg .ROUTE .STK-MED ONE Stop: 12/02/21 09:16 Last Admin: 12/02/21 10:11 Dose: 990 mg Documented by: [id number] Miscellaneous ( Floseal Hemostatic Matrix 10ml) 10 ml TOP ONCE ONE Stop: 12/02/21 10:09 Last Admin: 12/02/21 11:27 Dose: 10 ml Documented by: [id number]
[2021-12-02] MEDS ORDERED: GLUCOSE 10 TABS/TUBE PO PRN (15:45)
[2021-12-02] MEDS ORDERED: DEXTROSE 50% 50 ML SYRINGE IV PRN (15:45)
[2021-12-02] MEDS ORDERED: CARBOHYDRATES FOR HYPOGLYCEMIA PO PRN (15:45)
[2021-12-02] MEDS ORDERED: GLUCOSE 40% GEL 15 GM TUBE PO PRN (15:45)
[2021-12-02] MEDS ORDERED: GLUCAGON FOR INJ 1 MG VIAL IM PRN (15:45)
[2021-12-02] MEDS ORDERED: INSULIN GLARGINE SOLOSTAR 100 UNITS/ML 3 ML PEN SC ONE (16:00)
--- NOTE | 2021-12-02 16:05 | Pharmacy Report ---
Pharmacy Glycemic Short Note 2 - Date of Service December 02, 2021 - Glycemic Short BSG Results (Last 24 hours): 12/02/21 12/02/21 12/02/21 08:26 08:33 11:50 Glucose 131 H POC Glucose 172 H 194 H OUTPATIENT ANTIDIABETIC REGIMEN: * Glipizide 10 mg PO BID * Prandin 2mg TID * Metformin 1g BID * A1c 8.9% 09/23/21 ASSESSMENT: * 56 year old male, s/p spinal surgery, type 2 DM, blood sugar at 194mg/dl post- op, received Dexamethasone 8mg IV intra-op, and ordered 6mg IV Q8H x3 doses post-op * Pt is maintained on oral antidiabetic agents as an outpatient * Oral agents are not recommended for inpatient use d/t drug interactions, changing PO intake, and difficulty titrating for acute hyper/hypoglycemia. ADA recommends re-initiating outpatient oral agents 1-2 days prior to discharge if/when appropriate if they were held on admission. * Will hold oral agents for admission and utilize SQ basal bolus insulin regimen which is the recommended regimen for inpatient glycemic control. * Will initiate weight based insulin dosing for insulin shannan patient and titrate based on BSG trends. * Accuchecks overnight while on ATC IV steroids to prevent steroid induced hyperglycemia. * ADA & AACE recommend a goal blood sugar range 140-180 mg/dl for the majority of critically ill & non-critically ill patients. However, more stringent targets may be selected in individual cases. Will utilize more stringent goal of 110-140mg/dl based on patient age & comorbidities. Additionally, tighter glycemic control is warranted to facilitate wound/infection healing. PLAN FOR INPATIENT GLYCEMIC CONTROL: * Hold outpatient oral diabetes medications * Basal insulin * Lantus 45 units x 1 dose now then * 25 units HS for BSG 180mg/dl or greater then further dosing in AM * Bolus insulin * NovoLog per scale ACHS or Q6hrs while NPO and overnight at 0000 and 0400 * Goal Range: Low 110 mg/dL - High 140 mg/dL * Correction Factor: 10 mg/dL/unit * Nutritional / Prandial insulin per carb ratio of 1 unit per 4 grams CHO consumed
[2021-12-02] MEDS: ceFAZolin 2000MG 2,000 MG/15 ML SYR IV SCH (17:20)
[2021-12-02] MEDS: dexAMETHasone 6 MG in SYRINGE 0 ML IV SCH (17:20)
[2021-12-02] MEDS: INSULIN ASPART PER UNIT SC SCH ×3 (17:23→23:54)
[2021-12-02] MEDS ORDERED: DOCUSATE SODIUM/SENNA 50/8.6MG TAB PO SCH (21:00)
[2021-12-02] MEDS ORDERED: INSULIN GLARGINE SOLOSTAR 100 UNITS/ML 3 ML PEN SC SCH (21:00)
[2021-12-02] MEDS ORDERED: PRAVASTATIN SOD 40 MG TAB PO SCH (21:00)
[2021-12-02] MEDS ORDERED: glipiZIDE 5 MG TAB PO SCH (21:00)
[2021-12-03] MEDS: ceFAZolin 2000MG 2,000 MG/15 ML SYR IV SCH (01:55)
[2021-12-03] MEDS: dexAMETHasone 6 MG in SYRINGE 0 ML IV SCH ×2 (01:55→10:24)
[2021-12-03] MEDS: INSULIN ASPART PER UNIT SC SCH ×2 (04:27→09:07)
[2021-12-03] MEDS: POLYETHYLENE (MIRALAX) 17 GM PACK PO SCH ×2 (05:44→12:22)
[2021-12-03] MEDS: SODIUM CHLORIDE 0.9% 1000ML 1,000 ML IV SCH (05:45)
[2021-12-03] MEDS ORDERED: dilTIAZem HCL 120 MG CAPCR PO SCH (09:00)
[2021-12-03] MEDS ORDERED: INSULIN GLARGINE SOLOSTAR 100 UNITS/ML 3 ML PEN SC ONE (09:00)
[2021-12-03] MEDS ORDERED: lisinopril 10 MG TAB PO SCH (09:00)
[2021-12-03] MEDS ORDERED: MULTIVITAMIN TAB PO SCH (09:00)
[2021-12-03] MEDS ORDERED: ESCITALOPRAM OXALATE 10 MG TAB PO SCH (09:00)
[2021-12-03] MEDS ORDERED: CHOLECALCIFEROL 1,000 UNITS 25 MCG TAB PO SCH (09:00)
--- NOTE | 2021-12-03 09:02 | Discharge Summary ---
Date of Service December 03, 2021 Admission HPI Per Admitting Provider This is a 56-year-old male that presents with a work-related injury causing significant cervical radiculopathy. He is failed extensive course of nonoperative care and here for surgical intervention. Principal Diagnosis Cervical radiculopathy Discharge Data Allergies Allergy/AdvReac Type Severity Reaction Status Date / Time No Known Allergies Allergy Verified 12/02/21 08:28 Consultations 12/02/21 15:22 Consult Hospitalist Routine Procedures Performed Operation Date: 11/16/21 10:05 <No data on this case meets the specified criteria> Operation Date: 12/02/21 09:35 Actual Procedures p C4-C7 Anterior Cervical Discectomy Fusion, Spinal Cord Monitoring(Not Applicable) - Olivier Steward DO Ordered Studies 12/02/21 09:35 FL cervical 2-3V Routine Hospital Course (1) Herniation of cervical intervertebral disc with radiculopathy: Patient [facility]. Postop day 1 he was up and ambulating swallowing well no hoarseness. Arm symptoms markedly improved. Excellent strength testing. JUSTUS drain decreasing probably. Subsequent discharge home. Discharge orders instructions from the chart for further review. Total Time Total Time Spent Total Time Spent (In Minutes): 20 minutes Discharge Plan Discharge Items Patient Disposition: Home - Self-Care Reason For Visit: Spinal Stenosis, Cervical Region Discharge Diagnosis: Cervical spinal stenosis with radiculopathy Activity: As commented below Non-emergency contact: Primary Care Provider Call non-emergency contact if: you have any medication questions Follow-up/Referrals: PCP,NO [Primary Care Provider] - Diet: Regular Addtl Attending Provider Instructions: ACTIVITY RECOMMENDATIONS: SELF CARE INSTRUCTIONS AFTER CERVICAL FUSIONS 1. No smoking. Smoking drastically decreases the chance of a solid fusion. 2. No bending, lifting more than 5 pounds, or twisting (roll like a log when turning in bed). 3. You may shower 3 days after surgery. Thoroughly dry wound. Do not soak in the tub. 4. Cervical collar: Must be worn at all times including sleeping. You may remove the brace only to bath, eat and if you are sitting in a recliner. 5. Please walk as much as you can for exercise. Gradually increase the distance that you walk as your endurance increases. SPECIAL CARE INSTRUCTIONS: VERY IMPORTANT TO READ AND REVIEW A. Do not take any anti-inflammatory medications (i.e. Indocin, Advil, Aspirin, Naprosyn, Aleve, Motrin, etc.) as these may inhibit the chance of a solid fusion. Tylenol is okay to take. B. Your surgical incision has been closed with a cosmetic suture under the skin that will dissolve in about 6 weeks. In 14 days, you can use a pair of clean scissors and cut the suture that is left outside of the skin at the ends of your incision. C. Complications are uncommon, but please contact us if you have any signs or symptoms of: 1. wound infection (fever higher than 102.5 degrees F, redness, separation of wound, drainage, or increasing pain from the incision) 2. blood clots in legs (pain, swelling, redness and warmth in legs) 3. urinary tract infection (fever higher than 102.5 degrees, burning upon urination or increased frequency of urination) 4. nerve problems (inability to walk on your toes or heels, numbness, loss of bowel or bladder control) 5. any other symptoms that concern you. D. Please call the office at if you have any concerns or questions about your operation or recovery. MANAGING PAIN AFTER SPINAL SURGERY 1. Narcotic medication is intended for short-term use and will be provided for surgical pain. Surgical pain usually lasts for a period of 4-6 weeks. Narcotic medication includes Percocet, Vicodin, Darvocet, Tylenol #3 or Lortab. 2. Longer-term pain is more appropriately treated with non-narcotic medication such as Tylenol ES. 3. Muscle spasm is not appropriately treated with narcotics. Muscle relaxers such as Soma, Flexeril or Skelaxin can be used along with Tylenol ES. 4. Remember that we all live with some "aches and pains". This is not unusual or uncommon after an injury or as we get older. 5. We will provide appropriate medication within the normal guidelines of their prescribed use. We will also be very cautious and aware of potential abuse and extended duration of patients' medication needs. 6. Please allow 2-3 days to process refills. Prescriptions will not be mailed but must be picked up at the office. FOLLOW UP VISIT: Keep your scheduled follow-up appointment. Any questions, please call the office at . Pending Studies at Discharge: No Stand-Alone Forms: My [facility] [employer], Smoking Cessation Medications and DC Order Prescriptions: New tramadol 50 mg tablet 50 mg PO Q6H PRN (Reason: pain, moderate) Qty: 20 RF: 0 oxycodone 5 mg tablet 5 mg PO Q6H PRN (Reason: pain, severe) Qty: 20 RF: 0 Continued multivitamin Tablet 1 tab PO QAM RF: 0 repaglinide 2 mg Tablet 2 mg PO TID RF: 0 albuterol sulfate 2.5 mg /3 mL (0.083 %) Solution For Nebulization 2.5 mg INHALATION QID PRN (Reason: Wheezing) RF: 0 warfarin 10 mg Tablet 10 mg PO HS RF: 0 vitamin E 100 unit Capsule 100 unit PO QAM RF: 0 glipizide 10 mg Tablet 10 mg PO BID RF: 0 diltiazem HCl 120 mg Capsule,Extended Release 12 Hr 120 mg PO QAM RF: 0 pravastatin 80 mg Tablet 80 mg PO HS RF: 0 metformin 1,000 mg Tablet 1,000 mg PO BID RF: 0 lisinopril 10 mg Tablet 10 mg PO QAM RF: 0 albuterol sulfate 90 mcg/actuation Hfa Aerosol Inhaler 2 puff INHALATION Q6H PRN (Reason: Wheezing) RF: 0 escitalopram oxalate 10 mg Tablet 10 mg PO QAM RF: 0 cinnamon bark [Cinnamon] 500 mg Capsule 500 mg PO BID RF: 0 tizanidine 4 mg Capsule 4 mg PO HS RF: 0 cholecalciferol (vitamin D3) [Vitamin D3] 50 mcg (2,000 unit) Capsule 50 mcg PO QAM RF: 0 turmeric root extract 500 mg Capsule 500 mg PO QAM RF: 0 acetaminophen 500 mg Tablet 1,500 mg PO Q6H PRN (Reason: Pain) RF: 0 diphenhydramine HCl [Benadryl] 25 mg Capsule 25 mg PO HS PRN (Reason: Allergy Symptoms) RF: 0 Trulicity 0.75 mg/0.5 mL Pen Injector 0.75 mg SUBCUT WK RF: 0 [id number] [krill oil] 1,036-031-30-80 mg Capsule 1 cap PO QAM RF: 0 oxycodone-acetaminophen [Percocet] 5-325 mg Tablet 0.5 tab PO HS RF: 0 Discharge Orders: Discharge Order (Routine); Ordered 12/03/21 Ordered By: Olivier Steward Admission Data Admit Date/Time: 12/02/21 11:40 Attending Provider: Olivier Steward Admit Provider: Olivier Steward Primary Care Provider: PCP,NO Other Providers: Randy Edward
--- NOTE | 2021-12-03 11:46 | Hospitalist Progress Note ---
Date of Service December 03, 2021 Assessment & Plan (1) Herniation of cervical intervertebral disc with radiculopathy: (2) PAF (paroxysmal atrial fibrillation): (3) Hypertension: (4) Diabetes mellitus, type 2: (5) Sleep apnea: Plan: Herniation of cervical intervertebral disc with radiculopathy: --S/P anterior cervical discectomy with bilateral foraminotomies C4-C5, C5-C6 and C6-C7. #2 anterior cervical arthrodesis C4-C5, C5-C6 and C6-C7. #3 placement of Spira cage filled with I factor VIII millimeters at C for C5, 7 mm at C5-C6 and 9 mm at C6-C7. #4 application of gutiérrez plate and screws from C4- C7. POD #1 --Pain control, activity, wound care and DVT prophylaxis per primary team --Bowel regimen to prevent constipation --Monitor for Post Op anemia --Resume Coumadin when ok with Orthopedic surgery --PT/OT PAF (paroxysmal atrial fibrillation): currently in sinus rhythm Continue diltiazem Resume Coumadin as able Hypertension: Continue home meds. Diabetes mellitus, type 2: BGs slightly elevated secondary to steroids Continue insulin therapy Glycemic pharmacist help appreciated Sleep apnea: CPAP at bedtime DVT Px: Resume Coumadin as able Disposition As per Primary Team Advised patient to follow-up with PCP in 1 week upon discharge. Admission and Anticipated Discharge Date Admission Date: December 02, 2021 Subjective Patient is seen and examined at bedside States having minimal discomfort at surgical site Also states having mild discomfort with swallowing Otherwise feels well Denies any chest pain, shortness of breath, dizziness, nausea, abdominal pain Review of Systems Review of Systems: All systems reviewed & are unremarkable except as noted in Subjective Physical Exam Physical Exam: Physical Exam: Vitals signs as noted above General Appearance:Morbidly Obese, no apparent distress Head: normocephalic, Atraumatic Neck: Surgical site in dressing, +Drain Eyes: normal inspection, EOMI Neck: supple, Trachea midline Respiratory/Chest: Normal breath sounds, CTA Cardiovascular: S1, S2, No murmur Abdomen/GI:Soft, Non tender, Bowel sounds present Extremities/Musculoskeletal:normal inspection, Trace B/L edema Neurologic/Psych:AAOX3, grossly no focal neurological deficits Skin: normal color, warm Results & Data Results & Data ([facility]) Vital Signs (Past 12 Hours) Vital Signs Temp Pulse Pulse Resp BP Pulse Ox 12/03/21 11:25 80 16 94 12/03/21 10:27 37 C 69 18 143/78 H 92 12/03/21 07:27 36.7 C 70 16 157/89 H 92 12/03/21 07:19 73 14 93 12/03/21 03:15 81 16 94 12/03/21 01:42 37 C 80 18 145/78 H
== END 2021-12-03 13:20 | disposition home or self-care (01) | DRG 472 ==
LOC: ASU 07:50 → PACUINP 11:40 → 3E 15:16